=== PATIENT | female | born 1980 | race Two or more races ===

== ENCOUNTER 2025-02-03 16:41 | Emergency (ER) | payer MEDICAID ==
[~2025-02-03] VITALS: Ht 160 cm; Wt 71.2 kg
[2025-02-03 16:44] VITALS: TEMP 98
[2025-02-03] MEDS ORDERED: LORAZEPAM 0.5 MG TABLET ONE (18:14)
[2025-02-03] MEDS ORDERED: IBUPROFEN 600 MG TABLET ONE (18:14)
[2025-02-03] MEDS: IBUPROFEN 600 MG TABLET PO ONE (18:20)
[2025-02-03] MEDS: LORAZEPAM 1 MG TABLET PO ONE (18:20)
[2025-02-03] MEDS ORDERED: CYCL5TAB PO (19:13)
[2025-02-03] MEDS ORDERED: IBUP-1953 PO (19:13)
[2025-02-03 19:26] VITALS: BP 130/80; O2SAT 97
== END 2025-02-03 19:24 | disposition home or self-care (01) ==
LOC: ER 16:44
DX: S13.4XXA Sprain of ligaments of cervical spine, initial encounter (principal); M54.50 Low back pain, unspecified; R51.9 Headache, unspecified; Z87.448 Personal history of other diseases of urinary system; Z87.42 Personal history of other diseases of the female genital tract; V43.52XA Car driver injured in collision with other type car in traffic accident, initial encounter; Y93.89 Activity, other specified; Y92.488 Other paved roadways as the place of occurrence of the external cause; Y99.8 Other external cause status
CPT/HCPCS: 70450-TC; 72110-TC